=== PATIENT | female | born 1970 | race Caucasian/White ===

== ENCOUNTER 2019-04-29 07:03 | Emergency (ER) | payer BC ==
[2019-04-29 07:19] VITALS: BP 105/78
--- NOTE | 2019-04-29 07:20 | UC ---
Hand/Wrist HPI - HPI Summary HPI Summary: Patient's a 48-year-old female female presents to urgent care for evaluation of pain in the right thumb. Patient states essentially she knows little bit discomfort at the edge of her nail by her cuticle on the right thumb. Patient states she soaked it a couple times yesterday. Patient states tonight she woke up with pain and nose is increased in size and swelling. Patient concerned she has an infection. Patient is immunocompromised and gets IVIG infusions monthly. Patient states her tetanus is up-to-date. Patient's medications is entered in EMR reviewed. pt is RHD - History Of Current Complaint Stated Complaint: RT THUMB PAIN Hx Obtained From: Patient Hx Last Menstrual Period: 04/04/19 Onset/Duration: Gradual Onset Severity Initially: Mild Severity Currently: Mild Pain Intensity: 4 Pain Scale Used: 0-10 Numeric - Allergies/Home Medications Allergies/Adverse Reactions: Allergies Allergy/AdvReac Type Severity Reaction Status Date / Time clindamycin Allergy Rash Verified 04/29/19 07:21 ketoconazole [From Nizoral] Allergy Rash Verified 04/29/19 07:21 Sulfa (Sulfonamide Allergy Rash Verified 04/29/19 07:21 Antibiotics) Home Medications: Home Medications Ivig-Infusions 04/29/19 [History] Levocetirizine Dihydrochloride [Xyzal Allergy 24Hr] 5 mg PO DAILY 04/29/19 [ History Confirmed 04/29/19] Mesalamine [Mesalamine Dr] 400 mg PO DAILY 04/29/19 [History Confirmed 04/29/19] PMH/Surg Hx/FS Hx/Imm Hx Previously Healthy: Yes - low IG state - Surgical History Surgical History: None - Family History Known Family History: Positive: Non-Contributory - Social History Occupation: Employed Full-time - riding teacher Lives: With Family Alcohol Use: Occasionally Substance Use Type: None Smoking Status (MU): Never Smoked Tobacco Review of Systems All Other Systems Reviewed And Are Negative: Yes Constitutional: Positive: Negative Skin: Positive: Negative - Better Eyes: Positive: Negative Musculoskeletal: Positive: Other: - right thumb Physical Exam - Summary Physical Exam Summary: Vital Signs Reviewed: Yes A+Ox3, no distress Eyes: Conjunctiva Clear ENT: Hearing grossly normal neck: supple Respiratory: Positive: No respiratory distress, No accessory muscle use Cardiovascular: skin color reflect adequate perfusion CBT < 2 sec throughout tip of thumb Musculoskeletal Exam: + flex/ext MCP, IP without difficult Neurological: Positive: Alert, ambulatory without difficulty Psychological: Positive: Normal Response To examiner Skin: Positive: no rash, no ecchymosis + erythem and tenderness along medial aspect of cuticle, right thumb no fluctuance. no pain of palp pad No apparent pocket to I+D Triage Information Reviewed: Yes Vital Signs: Initial Vital Signs Temp 97.5 F 04/29/19 07:15 Pulse 84 04/29/19 07:15 Resp 14 04/29/19 07:15 BP 105/78 04/29/19 07:15 Pulse Ox 100 04/29/19 07:15 Hand/Wrist Course/Dx - Course Course Of Treatment: Patient presents to urgent care for evaluation of her right thumb. Patient states gestationdiscomfort and swelling at the margin of her cuticle. Patient states she was soaking through the day with little improvement. Lastly woke up and noticed it was swollen. Patient is immunocompromised. On exam vital signs are stable. Patient has erythema and pain along the right thumb medial aspect of the cuticle. Consistent with early paronychia. No apparent pocket to drain. No concern for a felon. Recommend patient soak it in the absence of. Starting Keflex. Offer patient's splint which he declined. Recommended Motrin and Tylenol. Strict return precautions discussed. - Differential Dx/Diagnosis Provider Diagnosis: Paronychia Discharge ED - Sign-Out/Discharge Documenting (check all that apply): Patient Departure All imaging exams completed and their final reports reviewed: No - Discharge Plan Condition: Stable Disposition: HOME Prescriptions: Cephalexin CAP* [Keflex 500 CAP*] 500 mg PO TID #20 cap Fluconazole [Diflucan 150 MG (NF)] 150 mg PO ONCE PRN #1 tab PRN Reason: vaginal yeast infection Patient Education Materials: Paronychia (ED) Referrals: Lucretia Manrique MD [Primary Care Provider] - Additional Instructions: - Continue to soak thumb in Epsom salts's for 15 minutes 2-3 times a day - Take antibiotics 3 times a day as prescribed until gone. This may cause diarrhea. Continue taking probiotics and consider taking yogurt to help offset the diarrhea - Monitor wound for increasing signs of infection. This increases redness, red streaking, fever, drainage, increased pain. You should be rechecked if you have any questions - Okay to apply splint to the thumb if you have pain with movement to protect it - Okay to alternate ibuprofen (Advil, Motrin) and Tylenol (acetaminophen) every 3 hours for pain or fever. Take with food. Do NOT take for more than 4-5 days. - You have been given a prescription for Diflucan. This is a medication to treat vaginal yeast infection she to develop one for many parents. Take his knees at the end of her antibiotic course. - Billing Disposition and Condition Condition: STABLE Disposition: Home
[2019-04-29] MEDS ORDERED: Cephalexin CAP* 500 MG PO ONE (07:38)
--- NOTE | 2019-04-29 15:40 | UC ---
Course/Dx - Diagnoses Provider Diagnoses: Paronychia Discharge ED - Sign-Out/Discharge Documenting (check all that apply): Post-Discharge Follow Up All imaging exams completed and their final reports reviewed: No Studies - Discharge Plan Condition: Stable Disposition: HOME Prescriptions: Cephalexin CAP* [Keflex 500 CAP*] 500 mg PO TID #20 cap Fluconazole [Diflucan 150 MG (NF)] 150 mg PO ONCE PRN #1 tab PRN Reason: vaginal yeast infection Patient Education Materials: Paronychia (ED) Referrals: Lucretia Manriuqe MD [Primary Care Provider] - Additional Instructions: - Continue to soak thumb in Epsom salts's for 15 minutes 2-3 times a day - Take antibiotics 3 times a day as prescribed until gone. This may cause diarrhea. Continue taking probiotics and consider taking yogurt to help offset the diarrhea - Monitor wound for increasing signs of infection. This increases redness, red streaking, fever, drainage, increased pain. You should be rechecked if you have any questions - Okay to apply splint to the thumb if you have pain with movement to protect it - Okay to alternate ibuprofen (Advil, Motrin) and Tylenol (acetaminophen) every 3 hours for pain or fever. Take with food. Do NOT take for more than 4-5 days. - You have been given a prescription for Diflucan. This is a medication to treat vaginal yeast infection she to develop one for many parents. Take his knees at the end of her antibiotic course. - Billing Disposition and Condition Condition: STABLE Disposition: Home
== END 2019-04-29 07:46 | disposition home or self-care (01) ==
LOC: UCCORT 07:03
DX: L03.011 Cellulitis of right finger (principal); Z88.1 Allergy status to other antibiotic agents; Z88.8 Allergy status to other drugs, medicaments and biological substances; Z88.2 Allergy status to sulfonamides
CPT/HCPCS: 99212; A9270-GY; G0463